=== PATIENT | male | born 1975 | race Hispanic/Latino ===

== ENCOUNTER 2022-02-18 09:37 | Emergency (ER) | payer SELFPAY ==
[~2022-02-18] VITALS: Ht 167.6 cm; Wt 84.8 kg
[2022-02-18] MEDS ORDERED: CLINDAMYCIN HC150 MG PO (09:57)
[2022-02-18] MEDS ORDERED: NAPROSYN500 MG PO (09:57)
== END 2022-02-18 10:30 | disposition home or self-care (01) ==
LOC: ER 09:55
DX: Z48.01 Encounter for change or removal of surgical wound dressing (principal)
CPT/HCPCS: 99283